=== PATIENT | female | born 1995 | race African-American/Black ===

== ENCOUNTER 2024-12-16 10:25 | Outpatient (REF) | payer OTHER, SELFPAY ==
--- NOTE | ~2024-12-16 | US_ITS ---
EXAMINATION: US PELVIS CLINICAL INFORMATION: Heavy bleeding with menses COMPARISON: None available. TECHNIQUE: Ultrasound of the pelvis is performed using both transabdominal and transvaginal transducers along with Doppler. Transvaginal imaging is performed due to inadequate visualization transabdominally. FINDINGS: Uterus: The uterus is anteverted and measures 7.4 x 3.4 x 4.3 cm. . The double wall endometrial thickness is 2 mm. The uterus is smooth in contour and has normal myometrial echogenicity. No visible fibroid. Adnexa: Right ovary measures 2.4 x 1.8 x 4.1 cm. Volume 9.5 mL Left ovary measures 2.6 x 1.8 x 1.8 cm. Volume 4.3 mL Bilateral ovaries appear unremarkable Small free fluid in the cul-de-sac. US/US pelvic and transvaginal IMPRESSION: No significant abnormality demonstrated by ultrasound. Electronically signed by: Kalpesh Ibarra MD 12/17/2024 02:48 PM EST
== END 2024-12-16 10:26 | disposition home or self-care (01) ==
LOC: HO.UMASIMG 10:25
PROVIDERS: Visit Provider Nurse Practitioner Women's Health
DX: N93.9 Abnormal uterine and vaginal bleeding, unspecified (principal)
CPT/HCPCS: 76830; 76856

== ENCOUNTER → 2024-12-16 13:11 | Outpatient (BNV) | payer OTHER, SELFPAY | PROVIDERS: Visit Provider Radiology Diagnostic Ultrasound | DX: N92.1 Excessive and frequent menstruation with irregular cycle (principal) | CPT/HCPCS: 76830; 76856 ==